=== PATIENT | male | born 1970 | race Caucasian/White ===

== ENCOUNTER 2021-08-06 21:43 | Inpatient (IN) | payer BC, OTHER ==
--- OUTSIDE RECORDS SUMMARY | 2021-08-06 21:47 | XMS REPORT | Continuity of Care Document ---
:[address] [facility] t Address [address] [place] [address] Care Team Providers Name Role Phone Unavailable Unavailable Unavailable Problems Condition Condition Condition Status Onset Resolution Last Treating Co mments Source Name Details Category Date Date Treatment Clinician Date WOUND EVAL Diagnosis Active 2016-02-01 Memoria 01-30 10:19:00 l WOUND 00:00: Jb EVAL 00 Active 01/31/2016 [facility] History of Past Illness Condition Condition Condition Status Onset Resolution Last Treating Co mments Source Name Details Category Date Date Treatment Clinician Date Discharge Problem 2016-02-03 2016-02-03 Memoria Diagnosis: 01-30 03:36:42 03:36:42 l Acute UTI 05:00: [facility] Discharge 00 Diagnosis: Acute UTI 01/31/2016 02/03/2016 [facility] Discharge Problem 2016-02-03 2016-02-03 Memoria Diagnosis: 01-30 03:36:42 03:36:42 l Pressure 05:00: [facility] ulcer of Discharge 00 buttock Diagnosis: Pressure ulcer of buttock 01/31/2016 02/03/2016 [facility] Allergies, Adverse Reactions, Alerts Allergy Allergy Status Severity Reaction(s) Onset Inactive Treating Comm ents Source Name Type Date Date Clinician Savannah Nuñez Active Haydeori a tin tin l Jb Social History Social Habit Start Date Stop Date Quantity Comments Source Social History 2016-01-31 2016-01-31 [facility] Santi kurtz 19:49:47 19:49:47 Medications Ordered Filled Start Stop Current Ordering Indication Dosage Frequency Signature Comments Components Source Medication Medication Date Date Medication? Clinician (SIG) Name Name amoxicillin Yes 500 mg = 1 Memoria 500 mg oral 8-19 cap, PO, l capsule 18:51: BID, X 10 Melly nn 00 day, # 20 cap, 0 Refill(s), Pharmacy: [id number] tramadol Yes 50 mg = 1 Raj taina hydrochlori 01-30 tab, PO, l de 50 MG 22:12: BID, X 7 Melly nn Oral Tablet 00 day, # 14 tab, 0 Refill(s) cefpodoxime Yes 200 mg = 1 Memoria 200 MG Oral 01-30 tab, PO, l Tablet 22:12: Q12H, X 7 Aguilar n [Vantin] 00 day, # 14 tab, 0 Refill(s) Acetaminoph No 1 tab, Raj taina en 325 MG / 01-30 Route: PO, l Hydrocodone 20:40: Drug Form: [facility] Bitartrate 00 TAB, 5 MG Oral Dosing Tablet Weight 111.364, kg, ONCE, STAT, Start date: 01/31/16 15:40:00 CDT, Stop date: 01/31/16 15:40:00 CDT Vital Signs Vital Name Observation Time Observation Value Comments Source Temperature Oral (F) 2016-01-31 23:45:00 98.5 F [facility] Respitory Rate 2016-01-31 23:45:00 Memori al Jb Systolic (mm Hg) 2016-01-31 23:45:00 Raj rial Jb Diastolic (mm Hg) 2016-01-31 23:45:00 Mem orial Jb Respitory Rate 2016-01-31 21:43:00 Memori al [facility] Systolic (mm Hg) 2016-01-31 21:43:00 Raj rial Jb Diastolic (mm Hg) 2016-01-31 21:43:00 Mem orial [facility] Temperature Oral (F) 2016-01-31 21:43:00 98.6 F [facility] BMI Calculated 2016-01-31 19:28:00 Memori al [facility] Height 2016-01-31 19:28:00 167.64 cm [facility] Weight 2016-01-31 19:28:00 [facility] Respitory Rate 2016-01-31 19:28:00 Memori al Jb Heart Rate 2016-01-31 19:28:00 [facility] Temperature Oral (F) 2016-01-31 19:28:00 98.8 F [facility] Systolic (mm Hg) 2016-01-31 19:28:00 Raj rial Jb Diastolic (mm Hg) 2016-01-31 19:28:00 Mem orial [facility] Procedures This patient has no known procedures. Encounters Start End Encounter Admission Attending Care Care Encounter Source Date/Time Date/Time Type Type Clinicians Facility Department ID 2016-01-31 2016-02-01 Emergency Hillary [facility] [id number] [facility] Results Test Description Test Time Test Comments Results Result Comments Source CHEM PANEL 2016-01-31 21:20:00 Test Item Value Reference Range Interpretation Comme nts Creatinine Lvl (test code = Creatinine Lvl) 0.81 0.50-1.[address] [facility]2016-08-17 21:20:00 Test Item Value Reference Range Interpretation Comments BUN (test code = BUN) 15 7-[address] [facility]2016-08-17 21:20:00 Test Item Value Reference Range Interpretation Comments Glucose Lvl (test code = Glucose Lvl) 126 70-[address] [facility]2016-08-17 21:20:00 Test Item Value Reference Range Interpretation Comments AGAP (test code = AGAP) 7.2 10.0-20.[address] [facility]2016-08-17 21:20:00 Test Item Value Reference Range Interpretation Comments eGFR (test code = eGFR) [address] [facility]2016-08-17 21:20:00 Test Item Value Reference Range Interpretation Comments Chloride Lvl (test code = Chloride Lvl) 103 95-[address] [facility]2016-08-17 21:20:00 Test Item Value Reference Range Interpretation Comments CO2 (test code = CO2) 34 24-[address] [facility]2016-08-17 21:20:00 Test Item Value Reference Range Interpretation Comments Calcium Lvl (test code = Calcium Lvl) 8.4 8.5-10.[address] [facility]2016-08-17 21:20:00 Test Item Value Reference Range Interpretation Comments Potassium Lvl (test code = Potassium 4.2 3.5-5.1 Lvl) [facility]2016-08-17 21:20:00 Test Item Value Reference Range Interpretation Comments Sodium Lvl (test code = Sodium Lvl) 140 135-145 [facility] AND [id number] 21:05:00 Test Item Value Reference Range Interpretation Comments UA Protein (test code Negative (01/31/16 4:05 = UA Protein) PM) [facility] [id number] 21:05:00 Test Item Value Reference Range Interpretation Comments UA Glucose (test code Negative (01/31/16 4:05 = UA Glucose) PM) [facility] AND [id number] 21:05:00 Test Item Value Reference Range Interpretation Comments UA Ketones (test code Negative *NA*(01/31/16 = UA Ketones) 4:05 PM) [facility] AND [id number] 21:05:00 Test Item Value Reference Range Interpretation Comments UA Urobilinogen (test code = UA 4.0 0.1-1.0 Urobilinogen) [facility] AND [id number] 21:05:00 Test Item Value Reference Range Interpretation Comments UA Nitrite (test code Positive *ABN*(01/31/16 = UA Nitrite) 4:05 PM) [facility] AND [id number] 21:05:00 Test Item Value Reference Range Interpretation Comments UA Leuk Est (test code Large *ABN*(01/31/16 = UA Leuk Est) 4:05 PM) [facility] AND [id number] 21:05:00 Test Item Value Reference Range Interpretation Comments UA pH (test code = UA pH) 7.5 1 5.0-8.0 [facility] AND [id number] 21:05:00 Test Item Value Reference Range Interpretation Comments UA Spec Grav (test code = UA Spec 1.015 1 Grav) [facility] AND [id number] 21:05:00 Test Item Value Reference Range Interpretation Comments UA Bili (test code = Negative *NA*(01/31/16 UA Bili) 4:05 PM) [facility] AND [id number] 21:05:00 Test Item Value Reference Range Interpretation Comments UA Blood (test code = Small *ABN*(01/31/16 UA Blood) 4:05 PM) [facility] AND [id number] 21:05:00 Test Item Value Reference Range Interpretation Comments UA Turbidity (test code Cloudy *ABN*(01/31/16 = UA Turbidity) 4:05 PM) [facility] AND [id number] 21:05:00 Test Item Value Reference Range Interpretation Comments UA Color (test code = Yellow *NA*(01/31/16 UA Color) 4:05 PM) [facility] AND [id number] 21:05:00 Test Item Value Reference Range Interpretation Comments UA Mucus (test code = None Seen (01/31/16 UA Mucus) 4:05 PM) [facility] AND [id number] 21:05:00 Test Item Value Reference Range Interpretation Comments UA Bacteria (test code = UA Many /HPF Bacteria) [facility] AND [id number] 21:05:00 Test Item Value Reference Range Interpretation Comments UA Sq Epi (test code = UA Sq Moderate /LPF Epi) [facility] AND [id number] 21:05:00 Test Item Value Reference Range Interpretation Comments UA WBC (test code = UA WBC) >100 /HPF [facility] AND [id number] 21:05:00 Test Item Value Reference Range Interpretation Comments UA RBC (test code = 0-2 /HPF See_Comment [Automa ian message] The UA RBC) system which ge nerated this result tra nsmitted reference range : <=2. The reference range was not used to interpr et this result as jessica l/abnormal. [id number] 21:00:00 Test Item Value Reference Range Interpretation Comments Hgb (test code = Hgb) 12.5 14.0-18.0 [id number] 21:00:00 Test Item Value Reference Range Interpretation Comments WBC (test code = WBC) 7.9 3.7-10.4 [id number] 21:00:00 Test Item Value Reference Range Interpretation Comments MPV (test code = MPV) 8.3 7.4-10.4 [id number] 21:00:00 Test Item Value Reference Range Interpretation Comments Platelet (test code = Platelet) 299 133-450 [id number] 21:00:00 Test Item Value Reference Range Interpretation Comments RDW (test code = RDW) 16.3 11.5-14.5 [id number] 21:00:00 Test Item Value Reference Range Interpretation Comments RBC (test code = RBC) 4.64 4.70-6.10 [id number] 21:00:00 Test Item Value Reference Range Interpretation Comments MCH (test code = MCH) 26.9 pg 27.0-31.0 [id number] 21:00:00 Test Item Value Reference Range Interpretation Comments MCHC (test code = MCHC) 32.8 32.0-36.0 [id number] 21:00:00 Test Item Value Reference Range Interpretation Comments Hct (test code = Hct) 37.9 42.0-54.0 [id number] 21:00:00 Test Item Value Reference Range Interpretation Comments MCV (test code = MCV) 81.8 80.0-94.0 [id number] 21:00:00 Test Item Value Reference Range Interpretation Comments Basophils (test code = 0.6 See_Comment [Aut omated message] The Basophils) system which ge nerated this result tra nsmitted reference range : <=1.0. The reference r kyrie was not used to int erpret this result as normal/abnormal . [id number] 21:00:00 Test Item Value Reference Range Interpretation Comments Segs-Bands # (test code = Segs-Bands #) 5.9 1.5-8.1 [facility] [id number] 21:00:00 Test Item Value Reference Range Interpretation Comments Monocytes (test code = Monocytes) 8.1 2.0-12.0 [id number] 21:00:00 Test Item Value Reference Range Interpretation Comments Eosinophils (test code = 1.9 See_Comment [A utomated message] The Eosinophils) system which ge nerated this result tra nsmitted reference range : <=4.0. The reference r kyrie was not used to int erpret this result as normal/abnormal . [id number] 21:00:00 Test Item Value Reference Range Interpretation Comments Lymphocytes # (test code = Lymphocytes 1.1 1.0-5.5 #) [id number] 21:00:00 Test Item Value Reference Range Interpretation Comments Segs (test code = Segs) 75.1 45.0-75.0 [facility] [id number] 21:00:00 Test Item Value Reference Range Interpretation Comments Lymphocytes (test code = Lymphocytes) 14.3 20.0-40.0 [facility] [id number] 21:00:00 Test Item Value Reference Range Interpretation Comments Monocytes # (test code 0.6 See_Comment [Aut omated message] The = Monocytes #) system which generated this result tra nsmitted reference range : <=0.8. The reference r kyrie was not used to int erpret this result as normal/abnormal . [facility] [id number] 21:00:00 Test Item Value Reference Range Interpretation Comments Eosinophils # (test code 0.1 See_Comment [A utomated message] The = Eosinophils #) system whic h generated this result tra nsmitted reference range : <=0.5. The reference r kyrie was not used to int erpret this result as normal/abnormal . [facility]
[2021-08-06 22:27] LABS: Absolute Lymphocytes (CBC) 1.1 K/uL (0.7-4.9); Hematocrit 34.6 % (39.6-49.0); MPV 7.6 fL (7.6-11.3); RBC Red Blood Cell Count 5.24 M/uL (4.33-5.43)
[2021-08-06 22:38] LABS: Protime INR 1.13
[2021-08-06 22:39] LABS: Urine Blood 3+ (Negative); Urine Glucose Negative (Negative); Urine Protein 3+ (Negative); Urine Specific Gravity 1.025 (1.005-1.030); Urine pH 6.5 (5.0-7.0)
[2021-08-06] MEDS ORDERED: CEFTRIAXONE 1000 MG/VIAL ONE (22:46)
[2021-08-06 22:51] LABS: ALT/SGPT 19 U/L (12-78); AST/SGOT 14 U/L (15-37); Albumin 2.2 g/dL (3.4-5.0); Alkaline Phosphatase 111 U/L (45-117); BUN Blood Urea Nitrogen 26 mg/dL (7-18); Bicarbonate 25 mmol/L (21-32); Bilirubin Direct 0.1 mg/dL (0-0.2); Bilirubin Total 0.3 mg/dL (0.2-1.0); Glucose Level 110 mg/dL (74-106); Lipase 62 U/L (73-393); Potassium 4.1 mmol/L (3.5-5.1); Protein, Total 8.1 g/dL (6.4-8.2); Sodium Level 134 mmol/L (136-145)
[2021-08-06] MEDS ORDERED: NA CHLORIDE 0.9% 1,000 ML ONE (23:08)
--- NOTE | 2021-08-06 23:09 | ER ---
Nurse's Notes [facility] Name: Elizabeth Spivey Age: 51 yrs Sex: Male : 1970 Arrival Date: 08/06/2021 Time: 21:45 Bed 19 Private MD: Diagnosis: Acute cystitis;Severe sepsis without septic shock;Pneumonia, unspecified organism Presentation: 08/06 22:00 Chief complaint: EMS states: they were toned out for report of pt with fever and UTI. bb Coronavirus screen: fever, Client presents with at least one sign or symptom that may indicate coronavirus-19. Standard/surgical mask placed on the client. Ebola Screen: No symptoms or risks identified at this time. Initial Sepsis Screen: Does the patient meet any 2 criteria? RR > 20 per min. Temp <36.0*C (96.8*F)) or > 38.3*C (100.9*F). HR > 90 bpm. Does the patient have a suspected source of infection? Yes: Dysuria/Frequency/Urgency/UTI. Risk Assessment: Do you want to hurt yourself or someone else? Patient reports no desire to harm self or others. Onset of symptoms was August 04, 2021. 22:00 Method Of Arrival: EMS: [facility] bb 22:00 Acuity: MARTÍN 3 bb Historical: - Allergies: 22:02 Macrobid; bb - Home Meds: 22:02 Myrbetriq 50 mg oral Tb24 1 tab once daily [Active]; bb - PMHx: 22:02 Spina Bifida; Lymphedema; bb - Immunization history:: Adult Immunizations up to date, Client reports receiving the 2nd dose of the Covid vaccine, Pfizer. - Social history:: Smoking status: Patient denies any tobacco usage or history of. Vital Signs: 22:00 BP 145 / 90; Pulse 118; Resp 22 S; Temp 100.8(O); Pulse Ox 93% on R/A; Weight 122.47 kg bb (R); Height 5 ft. 5 in. (165.10 cm) (R); Pain 0/10; 22:00 Body Mass Index 44.93 (122.47 kg, 165.10 cm) bb ED Course: 21:45 Patient arrived in ED. kc5 21:45 Dale Simons MD is Attending Physician. kdr 21:45 Richard Ruano PA is PHCP. jr8 21:48 Maintain EMS IV. Dressing intact. Site clean \\T\\ dry. sf1 21:52 Inserted saline lock: 20 gauge in right antecubital area, using aseptic technique. sf1 Blood collected. 22:01 Chelly Moss RN is Primary Nurse. sf1 22:02 Triage completed. bb 22:02 Arm band placed on Patient placed in an exam room, on a stretcher, on pulse oximetry. bb 22:32 Blood Culture Adult (2) Sent. sf1 22:32 Basic Metabolic Panel Sent. sf1 22:47 Chest Single View In Process Unspecified. EDMS 22:52 Procalcitonin Sent. sf1 22:52 SARS-COV-2 RT PCR (Document "Date of Onset" if Symptomatic) Sent. sf1 22:52 Urine Culture Sent. sf1 22:52 Urine Microscopic Only Sent. sf1 22:59 Urine Culture Sent. sf1 22:59 Urine Microscopic Only Sent. sf1 23:00 SARS-COV-2 RT PCR (Document "Date of Onset" if Symptomatic) Sent. sf1 23:08 Shamar Morales is Hospitalizing Provider. jr8 08/07 07:05 Primary Nurse role handed off by Chelly Moss RN 07:05 Rashard Lugo, ANDRE is Primary Nurse. bp Administered Medications: 08/06 22:00 Drug: NS 0.9% 1000 ml Route: IV; Rate: 1000 ml; Site: right antecubital; sf1 22:46 Drug: Rocephin (cefTRIAXone) 1 grams Route: IV; Rate: calculated rate; Site: left sf1 antecubital; 23:24 Drug: LevaQUIN (levofloxacin) 500 mg Volume: 100 ml; Route: IVPB; Infused Over: 60 sf1 mins; Site: right antecubital; Outcome: 23:09 Decision to Hospitalize by Provider. jr8 08/07 11:23 Patient left the ED. bp Signatures: Dispatcher [employer] EDMS Dale Simons MD MD kdr Ballard, Brenda, RN RN bb Richard Ruano PA PA jr8 Rashard Lugo RN RN Anika Shell [facility] Fillers, Chelly, RN RN sf1 Corrections: (The following items were deleted from the chart) 08/06 22: 22:01 Maintain EMS IV. [facility] 22:02 PMHx: Lympedema; bb bb 23:12 22:51 CBC Smear Scan drawn and sent. 1 EDMS
--- NOTE | 2021-08-06 23:09 | EDPHYS ---
Physician Documentation [facility] Name: Elizabeth Spivey Age: 51 yrs Sex: Male : 1970 Arrival Date: 08/06/2021 Time: 21:45 Bed 19 Private MD: ED Physician Dale Simons HPI: 08/06 22:57 This 51 yrs old Male presents to ER via EMS with complaints of Fever. jr8 22:57 The patient reports fever, with an emergency department temperature of 100.8 degrees jr8 Fahrenheit. Onset: The symptoms/episode began/occurred acutely, today. Modifying factors: there are no obvious modifying factors. Associated signs and symptoms: Pertinent positives: chills. Severity of symptoms: At their worst the symptoms were moderate in the emergency department the symptoms are unchanged. The patient has not experienced similar symptoms in the past. The patient has been recently seen by a physician:. Recently diagnosed with UTI at [facility] and put on Abx. Started to run fever and feel worse tonight. EMS state that he was initially hypoxic on scene in the low 90s as well . Historical: - Allergies: 22:02 Macrobid; bb - Home Meds: 22:02 Myrbetriq 50 mg oral Tb24 1 tab once daily [Active]; bb - PMHx: 22:02 Spina Bifida; Lymphedema; bb - Immunization history:: Adult Immunizations up to date, Client reports receiving the 2nd dose of the Covid vaccine, Pfizer. - Social history:: Smoking status: Patient denies any tobacco usage or history of. ROS: 23:07 Eyes: Negative for injury, pain, redness, and discharge, ENT: Negative for injury, jr8 pain, and discharge, Neck: Negative for injury, pain, and swelling, Cardiovascular: Negative for chest pain, palpitations, and edema, Respiratory: Negative for shortness of breath, cough, wheezing, and pleuritic chest pain, Abdomen/GI: Negative for abdominal pain, nausea, vomiting, diarrhea, and constipation, Back: Negative for injury and pain, MS/Extremity: Negative for injury and deformity, Skin: Negative for injury, rash, and discoloration, Neuro: Negative for headache, weakness, numbness, tingling, and seizure. 23:07 Constitutional: Positive for fever. 23:07 : Positive for small amounts. Exam: 23:07 Constitutional: This is a well developed, well nourished patient who is awake, alert, jr8 and in no acute distress. ENT: Nares patent. No nasal discharge, no septal abnormalities noted. Tympanic membranes are normal and external auditory canals are clear. Oropharynx with no redness, swelling, or masses, exudates, or evidence of obstruction, uvula midline. Mucous membranes moist. Neck: Trachea midline, no thyromegaly or masses palpated, and no cervical lymphadenopathy. Supple, full range of motion without nuchal rigidity, or vertebral point tenderness. No Meningismus. 23:07 Back: No spinal tenderness. No costovertebral tenderness. Full range of motion. Skin: Warm, dry with normal turgor. Normal color with no rashes, no lesions, and no evidence of cellulitis. MS/ Extremity: Pulses equal, no cyanosis. Neurovascular intact. Full, normal range of motion. Neuro: Awake and alert, GCS 15, oriented to person, place, time, and situation. Cranial nerves II-XII grossly intact. Motor strength 5/5 in all extremities. Sensory grossly intact. 23:07 Cardiovascular: Rate: tachycardic, Rhythm: regular, Pulses: Pulses are 2+ in right radial artery and left radial artery. Heart sounds: normal, normal S1and S2, no S3 or S4, no murmur, no rub, no gallop, Edema: is not appreciated. 23:07 Respiratory: the patient does not display signs of respiratory distress, Respirations: tachypnea, that is mild, Breath sounds: are clear throughout. 23:07 Abdomen/GI: Inspection: obese Bowel sounds: active, all quadrants, Palpation: soft, in all quadrants, mild abdominal tenderness, in the suprapubic area, mass, is not appreciated, rebound tenderness, is not appreciated, voluntary guarding, is not appreciated, involuntary guarding, is not appreciated, no appreciated organomegaly, Indicators: McBurney's point is not tender, Dubois's sign is negative, Rovsing's sign is negative. Vital Signs: 22:00 BP 145 / 90; Pulse 118; Resp 22 S; Temp 100.8(O); Pulse Ox 93% on R/A; Weight 122.47 kg bb (R); Height 5 ft. 5 in. (165.10 cm) (R); Pain 0/10; 22:00 Body Mass Index 44.93 (122.47 kg, 165.10 cm) bb MDM: 21:45 Patient medically screened. [email or web address]] 23:09 Data reviewed: vital signs, nurses notes, lab test result(s), EKG, radiologic studies, jr8 plain films. Data interpreted: Pulse oximetry: on room air is 93 %. Interpretation: normal. Counseling: I had a detailed discussion with the patient and/or guardian regarding: the historical points, exam findings, and any diagnostic results supporting the discharge/admit diagnosis, lab results, radiology results, the need for further work-up and treatment in the hospital. 08/06 21:51 Order name: Basic Metabolic Panel; Complete Time: 22:52 [facility] [[email or web address]] 08/06 21:51 Order name: Blood Culture Adult (2) [facility] [[email or web address]] 08/06 21:51 Order name: Urine Culture [facility] [[email or web address]] 08/06 21:51 Order name: Urine Microscopic Only; Complete Time: 23:37 [facility] [[email or web address]] 08/06 21:51 Order name: SARS-COV-2 RT PCR (Document "Date of Onset" if Symptomatic); Complete Time: jr8 00:14 08/06 22:22 Order name: Liver (Hepatic) Function; Complete Time: 22:52 EDMS 08/06 22:22 Order name: Troponin High Sensitivity; Complete Time: 22:52 EDMS 08/06 22:22 Order name: Lipase; Complete Time: 22:52 EDMS 08/06 22:22 Order name: Lactate; Complete Time: 22:52 EDMS 08/06 22:22 Order name: Procalcitonin; Complete Time: 23:55 EDMS 08/06 22:22 Order name: CBC with Automated Diff; Complete Time: 23:16 EDMS 08/06 22:22 Order name: PTT, Activated Partial Thromb; Complete Time: 22:52 EDMS 08/06 22:29 Order name: Protime (+INR); Complete Time: 22:52 EDMS 08/06 22:40 Order name: Urine Dipstick-Ancillary; Complete Time: 22:52 EDMS 08/06 23:12 Order name: Manual Differential; Complete Time: 23:16 EDMS 08/07 03:15 Order name: CBC with Automated Diff EDNC 08/07 03:38 Order name: Comprehensive Metabolic Panel EDNC 08/07 03:38 Order name: Lipid Profile EDNC 08/07 03:38 Order name: T4 Free EDNC 08/07 03:38 Order name: Magnesium EDNC 08/07 03:38 Order name: Thyroid Stimulating Hormone EDNC 08/06 21:51 Order name: Accucheck; Complete Time: 23:53 8 08/06 21:51 Order name: Cardiac monitoring; Complete Time: 22:32 8 08/06 21:51 Order name: EKG - Nurse/Tech; Complete Time: 23:53 8 08/06 21:51 Order name: IV Saline Lock - Large Bore; Complete Time: 22:32 8 08/06 21:51 Order name: Labs collected and sent; Complete Time: 22:32 [facility] [[email or web address]] 08/06 21:51 Order name: O2 Per Protocol; Complete Time: 22:32 8 08/06 21:51 Order name: O2 Sat Monitoring; Complete Time: 22:32 8 08/06 21:51 Order name: Urine Dipstick-Ancillary (obtain specimen); Complete Time: 22:52 [facility] [[email or web address]] 08/06 22:02 Order name: Chest Single View EDNC Administered Medications: 22:00 Drug: NS 0.9% 1000 ml Route: IV; Rate: 1000 ml; Site: right antecubital; sf1 22:46 Drug: Rocephin (cefTRIAXone) 1 grams Route: IV; Rate: calculated rate; Site: left sf1 antecubital; 23:24 Drug: LevaQUIN (levofloxacin) 500 mg Volume: 100 ml; Route: IVPB; Infused Over: 60 sf1 mins; Site: right antecubital; Disposition: 08/07 04:56 Co-signature as Attending Physician, Dale Simons MD I agree with the assessment and kdr plan of care. Disposition Summary: 08/06/21 23:09 Hospitalization Ordered Hospitalization Status: Inpatient Admission jr8 Provider: Shamar Morales Condition: Stable jrKeith Problem: new jr8 Symptoms: have improved jr8 Bed/Room Type: Standard [facility] [email or web address]] Location: Telemetry/MedSurg (Inpatient)(08/07/21 09:14) bd Room Assignment: 419(08/07/21 09:14) bd Diagnosis - Acute cystitis jr8 - Severe sepsis without septic shock jr8 - Pneumonia, unspecified organism jr8 Forms: - Medication Reconciliation Form jr8 - SBAR form jr8 Signatures: Dispatcher [employer] EDMS Angelica Charles bd Dale Simons MD MD [facility] Migdalia Bravo RN RN bb Richard Ruano PA PA jr8 Kaylee Carrillo RN RN cg Chelly Moss RN RN sf1 Corrections: (The following items were deleted from the chart) 08/06 22:04 22:02 PMHx: Lympedema; bb bb 22: 22:18 CBC+H.LAB.BRZ ordered. EDMS EDMS : 22:18 HEPATIC FUNCTION+C.LAB.BRZ ordered. EDMS EDMS : 22:18 LACTATE+C.LAB.BRZ ordered. EDMS EDMS : 22:18 LIPASE+C.LAB.BRZ ordered. EDMS EDMS : 22:18 PCT+C.LAB.BRZ ordered. EDMS EDMS : 22:18 PROTIME (+INR)+COAG.LAB.BRZ ordered. EDMS EDMS : 22:18 PTT, ACTIVATED+COAG.LAB.BRZ ordered. EDMS EDMS 22: 22:18 Troponin High Sensitivity+C.LAB.BRZ ordered. EDMS EDMS 22:44 22:18 Chest Single View+RAD.RAD.BRZ ordered. EDMS EDMS 23:12 22:34 CBC Smear Scan ordered. EDMS EDMS 08/07 00:29 08/06 23:09 Telemetry/MedSurg (Inpatient) [facility] [[email or web address]] cg 08/07 00:29 08/06 23:09 jr cg 08/07 09:14 00:29 [facility] ER HOLD cg bd 09:14 00:29 ERHOLD- cg bd
[2021-08-06 23:15] LABS: Anisocytosis 2+; Blood Morphology Comment NOTED (NOT SEEN); Platelet Estimate INCR
[2021-08-06] MEDS ORDERED: Levofloxacin500mg IV 500 MG/100 ML BAG IV ONE (23:23)
[2021-08-06 23:31] LABS: Urine Bacteria <20 /HPF (NONE SEEN)
--- NOTE | 2021-08-07 00:12 | P.HP ---
Certification for Inpatient Patient admitted to: Inpatient With expected LOS: >2 Midnights Patient will require the following post-hospital care: None Practitioner: I am a practitioner with admitting privileges, knowledge of patient current condition, hospital course, and medical plan of care. Services: Services provided to patient in accordance with Admission requirements found in Title 42 Section 412.3 of the Code of Federal Regulations Patient History Date of Service: 08/07/21 Primary Care Provider: Unknown Reason for admission: Urosepsis History of Present Illness: Patient is a 51-year-old male with spina bifida with indwelling suprapubic urinary catheter who presents to the ED with complaints of fever. Patient states that he went to [place] ER 2 days ago and was prescribed amoxicillin for UTI and discharged. Today in the ED patient's WBC was 10.7 but elevated bands. Sodium 134, calcium 8, pro-Sachin 0.18. urine 3+ blood, positive for nitrites, 3+ leukoesterase, 5-10 red blood cells and too numerous to count white blood cells. Covid negative, lactic acid 0.7. Patient is A&Ox3 and vital signs remain stable. blood cultures were drawn and patient was started on Levaquin and Rocephin. Patient was given 2 L of fluid in the ED. patient will be admitted for further evaluation and treatment of urosepsis with IV antibiotics. Allergies nitrofurantoin [From Macrodantin] Allergy (Verified 02/23/16 15:56) Anaphylaxis Home medications list reviewed: Yes Home Medications: NK [No Home Meds] 02/23/16 - Past Medical/Surgical History Diabetic: No -: Spina Bifida -: Lymphedema -: Hx osteomyelitis -: Toe amputation left foot -: Bladder sphincter revision Psychosocial/ Personal History: Patient lives alone. - Family History Father -: Cancer - Social History Smoking Status: Never smoker Alcohol use: Yes CD- Drugs: No Place of Residence: Home Review of Systems 10-point ROS is otherwise unremarkable General: Fever, As per HPI Physical Examination - Physical Exam General: Alert, In no apparent distress, Oriented x3, Obese HEENT: Atraumatic, PERRLA, Mucous membr. moist/pink, EOMI, Sclerae nonicteric Neck: Supple, 2+ carotid pulse no bruit, No LAD, Without JVD or thyroid abnormality Respiratory: Clear to auscultation bilaterally, Normal air movement Cardiovascular: Regular rate/rhythm, Normal S1 S2 Gastrointestinal: Normal bowel sounds, No tenderness Musculoskeletal: No tenderness Integumentary: No rashes Neurological: Normal speech, Normal strength at 5/5 x4 extr, Normal tone, Normal affect Urinary: Suprapubic catheter - Studies Laboratory Data (last 24 hrs) 08/06/21 21:58: PT 13.0 H, INR 1.13, APTT 33.9 08/06/21 21:58: WBC 10.70, Hgb 10.8 L, Hct 34.6 L, Plt Count 555 H 08/06/21 21:58: Sodium 134 L, Potassium 4.1, BUN 26 H, Creatinine 0.88, Glucose 110 H, Total Bilirubin 0.3, AST 14 L, ALT 19, Alkaline Phosphatase 111, Lipase 62 L 08/06/21 21:51: PT Cancelled, INR Cancelled, APTT Cancelled 08/06/21 21:51: Total Bilirubin Cancelled, AST Cancelled, ALT Cancelled, Alkaline Phosphatase Cancelled, Lipase Cancelled 08/06/21 21:51: WBC Cancelled, Hgb Cancelled, Hct Cancelled, Plt Count Cancelled Assessment and Plan - Problems (Diagnosis) (1) Sepsis due to urinary tract infection Current Visit: Yes Status: Acute (2) Lymphedema Current Visit: Yes Status: Chronic (3) Obesity (BMI 35.0-39.9 without comorbidity) Current Visit: Yes Status: Chronic (4) Paraplegia Current Visit: Yes Status: Chronic (5) Spina bifida Current Visit: Yes Status: Chronic Qualifiers: Spinal region: unspecified Presence of hydrocephalus: unspecified hydrocephalus presence Qualified Code(s): Q05.9 - Spina bifida, unspecified - Plan -patient started on levaquin and rocephin -continue IVF and tele -urine and blood cultures collected -trend WBC -patient takes Myrbetriq 500 mg QD as a home med, however is not available here DVT ppx: Lovenox Code: Full Discharge Plan: Home Plan to discharge in: Greater than 2 days - Advance Directives Does patient have a Living Will: No Does patient have a Durable POA for Healthcare: No - Code Status/Comfort Care Code Status Assessed: Yes (Full) Critical Care: No Time Spent Managing Pts Care (In Minutes): 70
[2021-08-07] MEDS ORDERED: ONDANSETRON 4 MG/2 ML VIAL IV PRN (01:54)
[2021-08-07] MEDS: NA CHLORIDE 0.9% 1,000 ML IV SCH ×3 (01:54→21:44)
[2021-08-07] MEDS ORDERED: Levofloxacin 750mg IV 750 MG/150 ML BAG IV SCH (02:00)
[2021-08-07] MEDS ORDERED: NA CHLORIDE 0.9% 1,000 ML ONE (02:34)
[2021-08-07 03:13] LABS: Absolute Lymphocytes (CBC) 0.8 K/uL (0.7-4.9); Hematocrit 33.8 % (39.6-49.0); Lymphocytes % 9.1 % (15.3-44.8); MPV 7.8 fL (7.6-11.3); RBC Red Blood Cell Count 4.98 M/uL (4.33-5.43)
[2021-08-07 03:38] LABS: Bilirubin Total 0.3 mg/dL (0.2-1.0); Potassium 3.9 mmol/L (3.5-5.1); Protein, Total 7.7 g/dL (6.4-8.2); Thyroid Stimulating Hormone 2.48 uIU/mL (0.360-3.740)
--- NOTE | 2021-08-07 04:23 | P.INFCA ---
Sepsis Focused Assessment - Focused Assessment Complete? Sepsis Focused Assessment Completed?: Yes - Sepsis Screen Result Severe Sepsis: Positive Septic Shock: Negative - Evaluation Current stage of sepsis: Severe sepsis - Vital Signs Reviewed: Yes - Examination Date exam was performed: 08/07/21 Time exam was performed: 04:00 Heart: Regular rate/rhythm Lungs: Clear bilaterally Peripheral pulses: 3+ Normal Peripheral pulse location: Radial Skin examination: Normal turgor
[2021-08-07 07:23] VITALS: BMI 44.9
--- NOTE | 2021-08-07 08:26 | RAD REPORT ---
EXAM DESCRIPTION: RAD - Chest Single View - 08/06/2021 10:47 pm CLINICAL HISTORY: fever Chest pain. COMPARISON: CHEST SINGLE VIEW dated 05/06/2008; CHEST SINGLE VIEW dated 09/25/2005 FINDINGS: Portable technique limits examination quality. Asymmetric bilateral interstitial lung opacities are present, greater on the right. This likely repre sents a viral infection. The heart is normal in size. No displaced fractures.
[2021-08-07] MEDS: ENOXAPARIN 40 MG/0.4 ML SQ SCH (09:00)
[2021-08-07] MEDS: CEFTRIAXONE 1,000 MG in NA CHLORIDE 0.9% 50 ML IVPB SCH (09:00)
[2021-08-07] MEDS ORDERED: ENOXAPARIN 40 MG/0.4 ML SQ ONE (09:37)
[2021-08-07] MEDS ORDERED: CEFTRIAXONE 1000 MG/VIAL ONE (09:37)
[2021-08-07] MEDS ORDERED: NA CHLORIDE 0.9% 100 ML IV ONE (09:37)
--- NOTE | 2021-08-07 16:10 | EKG ---
Test Date: 2021-08-06 Test Time: 23:49:51 [place]: MEASUREMENT RESULTS: Intervals: Rate: 102 NC: 130 QRSD: 72 QT: 348 QTc: 453 [place]: P: 42 NC: 130 QRS: 91 T: 34 INTERPRETIVE STATEMENTS: Sinus tachycardia Rightward axis Cannot rule out Anterior infarct, age undetermined Abnormal ECG Compared to ECG 09/25/2005 19:09:00 Right-axis deviation now present Myocardial infarct finding now present Sinus rhythm no longer present Electronically Signed On 08-07-21 16:10:38 ADJUSTMENT SUPERVISOR by Radhames Reina
--- NOTE | 2021-08-07 16:26 | P.PN ---
Subjective Date of Service: 08/07/21 Primary Care Provider: Unknown Chief Complaint: Urosepsis Complaining of dysuria, general malaise and fever. He had a fever of 100.8 last night. He is tolerating diet. Physical Examination - Vital Signs Temperature: 98.2 F Blood Pressure: 114/76 Pulse: 97 Respirations: 20 Pulse Ox (%): 97 - Studies Laboratory Data (last 24 hrs) 08/06/21 21:58: PT 13.0 H, INR 1.13, APTT 33.9 08/06/21 21:58: WBC 10.70, Hgb 10.8 L, Hct 34.6 L, Plt Count 555 H 08/06/21 21:58: Sodium 134 L, Potassium 4.1, BUN 26 H, Creatinine 0.88, Glucose 110 H, Total Bilirubin 0.3, AST 14 L, ALT 19, Alkaline Phosphatase 111, Lipase 62 L 08/06/21 21:51: PT Cancelled, INR Cancelled, APTT Cancelled 08/06/21 21:51: Total Bilirubin Cancelled, AST Cancelled, ALT Cancelled, Alkaline Phosphatase Cancelled, Lipase Cancelled 08/06/21 21:51: WBC Cancelled, Hgb Cancelled, Hct Cancelled, Plt Count Cancelled Assessment And Plan - Current Problems (Diagnosis) (1) Sepsis due to urinary tract infection Current Visit: Yes Status: Acute (2) Obesity (BMI 35.0-39.9 without comorbidity) Current Visit: Yes Status: Chronic (3) Paraplegia Current Visit: Yes Status: Chronic (4) Spina bifida Current Visit: Yes Status: Chronic Qualifiers: Spinal region: unspecified Presence of hydrocephalus: unspecified hydrocephalus presence Qualified Code(s): Q05.9 - Spina bifida, unspecified - Plan Physical Exam General: Alert, In no apparent distress, Oriented x3, Obese HEENT: Atraumatic, PERRLA, Mucous membr. moist/pink, EOMI, Sclerae nonicteric Neck: Supple, 2+ carotid pulse no bruit, No LAD, Without JVD or thyroid abnormality Respiratory: Clear to auscultation bilaterally, Normal air movement Cardiovascular: Regular rate/rhythm, Normal S1 S2 Gastrointestinal: Normal bowel sounds, No tenderness Musculoskeletal: No tenderness Integumentary: No rashes Neurological: Normal speech, Normal strength at 5/5 x4 extr, Normal tone, Normal affect Genitourinary: Suprapubic catheter Assessment and plan Continue current antibiotics. Urine culture and blood cultures are pending. Supportive measures-antipyretics, pain management as needed. It appears his suprapubic catheter is leaking. This may need to be fixed-preferably as an outpatient with urology. New to treat infection before any urology procedure. Monitor and optimize electrolytes.
[2021-08-07] MEDS: ACETAMINOPHEN 500 MG TAB PO PRN (17:50)
[2021-08-07] MEDS: Levofloxacin 750mg IV 750 MG/150 ML BAG IV SCH (20:59)
[2021-08-08 04:47] LABS: Absolute Lymphocytes (CBC) 1.6 K/uL (0.7-4.9); Hematocrit 31.5 % (39.6-49.0); MPV 8.4 fL (7.6-11.3); RBC Red Blood Cell Count 4.72 M/uL (4.33-5.43)
[2021-08-08 05:04] LABS: ALT/SGPT 15 U/L (12-78); AST/SGOT 10 U/L (15-37); Alkaline Phosphatase 77 U/L (45-117); BUN Blood Urea Nitrogen 25 mg/dL (7-18); Bicarbonate 25 mmol/L (21-32); Bilirubin Total 0.2 mg/dL (0.2-1.0); Glucose Level 116 mg/dL (74-106); Potassium 3.5 mmol/L (3.5-5.1); Protein, Total 6.9 g/dL (6.4-8.2); Sodium Level 140 mmol/L (136-145)
[2021-08-08 08:15] VITALS: O2SAT 94
[2021-08-08] MEDS: ENOXAPARIN 40 MG/0.4 ML SQ SCH (08:47)
[2021-08-08] MEDS: CEFTRIAXONE 1,000 MG in NA CHLORIDE 0.9% 50 ML IVPB SCH (08:47)
[2021-08-08] MEDS: NA CHLORIDE 0.9% 1,000 ML IV SCH ×2 (08:49→18:35)
--- NOTE | 2021-08-08 15:23 | P.PN ---
Subjective Date of Service: 08/08/21 Primary Care Provider: Unknown Chief Complaint: Urosepsis Nursing staff report patient has been having frequent diarrhea He is tolerating diet. No fever today. Physical Examination - Vital Signs Temperature: 97.2 F Blood Pressure: 100/70 Pulse: 86 Respirations: 18 Pulse Ox (%): 97 - Physical Exam General: Alert, In no apparent distress, Obese HEENT: Mucous membr. moist/pink Neck: JVD not distended Respiratory: Clear to auscultation bilaterally, Normal air movement Cardiovascular: No edema, Regular rate/rhythm, Normal S1 S2 Gastrointestinal: Soft and benign, Non-distended, No tenderness, Other (Suprapubic catheter) Musculoskeletal: No swelling Integumentary: No cyanosis Neurological: Normal strength at 5/5 x4 extr - Studies Microbiology Data (last 24 hrs): 08/06/21 22:15 Blood - Blood Blood Culture Gram Stain - Final Assessment And Plan - Current Problems (Diagnosis) (1) Sepsis due to urinary tract infection Current Visit: Yes Status: Acute (2) Obesity (BMI 35.0-39.9 without comorbidity) Current Visit: Yes Status: Chronic (3) Paraplegia Current Visit: Yes Status: Chronic (4) Spina bifida Current Visit: Yes Status: Chronic Qualifiers: Spinal region: unspecified Presence of hydrocephalus: unspecified hydrocephalus presence Qualified Code(s): Q05.9 - Spina bifida, unspecified - Plan Physical Exam General: Alert, In no apparent distress, Oriented x3, Obese HEENT: Atraumatic, PERRLA, Mucous membr. moist/pink, EOMI, Sclerae nonicteric Neck: Supple, 2+ carotid pulse no bruit, No LAD, Without JVD or thyroid abnormality Respiratory: Clear to auscultation bilaterally, Normal air movement Cardiovascular: Regular rate/rhythm, Normal S1 S2 Gastrointestinal: Normal bowel sounds, No tenderness Musculoskeletal: No tenderness Integumentary: No rashes Neurological: Normal speech, Normal strength at 5/5 x4 extr, Normal tone, Normal affect Genitourinary: Suprapubic catheter Assessment and plan Continue current antibiotics. Urine culture growing gram-negative rods. 1 out of 4 blood culture bottles growing gram-positive cocci. This is likely a skin contaminant Supportive measures-antipyretics, pain management as needed. It appears his suprapubic catheter is leaking. This may need to be fixed-preferably as an outpatient with urology. Monitor and optimize electrolytes. Check stool for C. difficile. IV fluid.
[2021-08-08] MEDS: ACETAMINOPHEN 500 MG TAB PO PRN (21:41)
[2021-08-08] MEDS: Levofloxacin 750mg IV 750 MG/150 ML BAG IV SCH (21:42)
[2021-08-09] MEDS: NA CHLORIDE 0.9% 1,000 ML IV SCH (05:57)
[2021-08-09] MEDS: ACETAMINOPHEN 500 MG TAB PO PRN (05:58)
[2021-08-09 06:24] LABS: Absolute Lymphocytes (CBC) 1.8 K/uL (0.7-4.9); Hematocrit 33.7 % (39.6-49.0); Lymphocytes % 23.2 % (15.3-44.8); MPV 7.6 fL (7.6-11.3); RBC Red Blood Cell Count 4.96 M/uL (4.33-5.43)
[2021-08-09 06:43] LABS: ALT/SGPT 14 U/L (12-78); AST/SGOT 11 U/L (15-37); Albumin 2.2 g/dL (3.4-5.0); Alkaline Phosphatase 72 U/L (45-117); BUN Blood Urea Nitrogen 19 mg/dL (7-18); Bicarbonate 26 mmol/L (21-32); Bilirubin Total 0.1 mg/dL (0.2-1.0); Glucose Level 112 mg/dL (74-106); Potassium 3.5 mmol/L (3.5-5.1); Protein, Total 7.2 g/dL (6.4-8.2); Sodium Level 141 mmol/L (136-145)
[2021-08-09] MEDS ORDERED: POTASSIUM 25 MEQ EFFERV TAB PO ONE (07:19)
[2021-08-09] MEDS: ENOXAPARIN 40 MG/0.4 ML SQ SCH (09:27)
--- NOTE | 2021-08-09 11:05 | P.DS ---
Admission Date: 08/06/21 Discharge Date: 08/09/21 Primary Care Provider: Unknown Disposition: DC HOME/HOME HEALTH CARE Discharge Condition: GOOD Reason for Admission: Urosepsis - Problems (1) Sepsis due to urinary tract infection Status: Acute (2) Obesity (BMI 35.0-39.9 without comorbidity) Status: Chronic (3) Paraplegia Status: Chronic (4) Spina bifida Status: Chronic Qualifiers: Spinal region: unspecified Presence of hydrocephalus: unspecified hydrocephalus presence Qualified Code(s): Q05.9 - Spina bifida, unspecified Brief History of Present Illness: Patient is a 51-year-old male with spina bifida with indwelling suprapubic urinary catheter presented to the ED with complaints of fever. Patient states that he went to [place] ER 2 days ago and was prescribed amoxicillin for UTI and discharged. Today in the ED patient's WBC was 10.7 but elevated bands. Sodium 134, calcium 8, pro-Sachin 0.18. urine 3+ blood, positive for nitrites, 3+ leukoesterase, 5-10 red blood cells and too numerous to count white blood cells. Covid negative, lactic acid 0.7. Patient is A&Ox3 and vital signs remain stable. blood cultures were drawn and patient was started on Levaquin and Rocephin. Patient was given 2 L of fluid in the ED. Patient admitted for further evaluation and treatment of urosepsis with IV antibiotics. Hospital Course: Patient admitted to the medical floor and treated with IV Rocephin and Levaquin. Urine culture grew multiple organism-E. coli and Klebsiella. Patient became afebrile, and asymptomatic. Blood cultures yielded no growth. His oral intake is good. Patient has been afebrile for 48 hours. Vitals are stable. He is deemed stable for discharge. Vital Signs/Physical Exam: Temp Pulse Resp BP Pulse Ox 97.9 F 97 H 20 113/69 99 08/09/21 08:00 08/09/21 08:00 08/09/21 08:00 08/09/21 08:00 08/09/21 08:00 General: Alert, In no apparent distress, Oriented x3 HEENT: PERRLA, Mucous membr. moist/pink Neck: JVD not distended Respiratory: Clear to auscultation bilaterally, Normal air movement Cardiovascular: No edema, Regular rate/rhythm, Normal S1 S2 Gastrointestinal: Normal bowel sounds, Soft and benign, Non-distended, Other (Suprapubic catheter) Musculoskeletal: No swelling Integumentary: No cyanosis Neurological: Other (Paraplegia.) Laboratory Data at Discharge: WBC 7.70 K/uL (4.3-10.9) 08/09/21 05:50 Hgb 10.4 g/dL (13.6-17.9) L 08/09/21 05:50 Hct 33.7 % (39.6-49.0) L 08/09/21 05:50 Plt Count 496 K/uL (152-406) H 08/09/21 05:50 PT 13.0 SECONDS (9.5-12.5) H 08/06/21 21:58 INR 1.13 08/06/21 21:58 APTT 33.9 SECONDS (24.3-36.9) 08/06/21 21:58 Sodium 141 mmol/L (136-145) 08/09/21 05:50 Potassium 3.5 mmol/L (3.5-5.1) 08/09/21 05:50 BUN 19 mg/dL (7-18) H 08/09/21 05:50 Creatinine 0.79 mg/dL (0.55-1.3) 08/09/21 05:50 Glucose 112 mg/dL (74-106) H 08/09/21 05:50 Magnesium 2.0 mg/dL (1.8-2.4) 08/07/21 02:33 Total Bilirubin 0.1 mg/dL (0.2-1.0) L 08/09/21 05:50 AST 11 U/L (15-37) L 08/09/21 05:50 ALT 14 U/L (12-78) 08/09/21 05:50 Alkaline Phosphatase 72 U/L (45-117) 08/09/21 05:50 Triglycerides 107 mg/dL (<150) 08/07/21 02:33 Cholesterol 92 mg/dL (<200) 08/07/21 02:33 HDL Cholesterol 19 mg/dL (40-60) L 08/07/21 02:33 Cholesterol/HDL Ratio 4.84 08/07/21 02:33 Lipase 62 U/L (73-393) L 08/06/21 21:58 Home Medications: Amox/Clavulanate [Augmentin 875-125 Tab] 875 mg PO BID #20 tab 08/09/21 Lactobacillus Acidophilus [Acidophilus Lactobacilli] 1 each PO TID #90 capsule 08/09/21 levoFLOXacin [Levaquin] 750 mg PO DAILY #10 tab 08/09/21 New Medications: Lactobacillus Acidophilus [Acidophilus Lactobacilli] 1 each PO TID #90 capsule Amox/Clavulanate [Augmentin 875-125 Tab] 875 mg PO BID #20 tab levoFLOXacin [Levaquin] 750 mg PO DAILY #10 tab Diet: Regular Activity: Ad speedy Followup: NONE,NONE [Primary Care Provider] - 1-2 Weeks Time spent managing pt's care (in minutes): 36
[2021-08-09 13:23] VITALS: BP 123/61; TEMP 97.8
== END 2021-08-09 15:14 | disposition home or self-care (01) | DRG 871 ==
LOC: ER 21:43 → ERHOLD 23:51 → 4TH 08-07 10:38 → 2ND 08-08 00:16
PROVIDERS: ADMIT Internal Medicine; ATTEND Internal Medicine
DX: A41.51 Sepsis due to Escherichia coli [E. coli] (principal); J18.9 Pneumonia, unspecified organism; N30.00 Acute cystitis without hematuria; Z68.41 Body mass index [BMI] 40.0-44.9, adult; G82.20 Paraplegia, unspecified; R65.20 Severe sepsis without septic shock; Q05.9 Spina bifida, unspecified; E66.9 Obesity, unspecified; B96.1 Klebsiella pneumoniae [K. pneumoniae] as the cause of diseases classified elsewhere; Z88.1 Allergy status to other antibiotic agents; Z79.899 Other long term (current) drug therapy; Z89.422 Acquired absence of other left toe(s); Z60.2 Problems related to living alone; Z20.822 Contact with and (suspected) exposure to COVID-19
CPT/HCPCS: 36415; 71045; 80048; 80053; 80061; 80076; 81003; 81015; 83605; 83690; 83735; 84145; 84439; 84443; 84484; 85025; 85610; 85730; 87040; 87077; 87086; 87088; 87186; 87205; 93005; 99284; J1650; J7030; U0003

== ENCOUNTER 2024-01-31 12:52 | Emergency (ER) | payer BC, OTHER ==
--- NOTE | 2024-01-31 13:46 | RAD REPORT ---
EXAM DESCRIPTION: CTAbdomen Pelvis Wo Contrast - 01/31/2024 1:30 pm CLINICAL HISTORY: possible left nephrostomy displacement COMPARISON: Abdomen Pelvis W Contrast dated 12/25/2023; Abdomen Pelvis W Contrast dated 08/17/2023; Abdomen Pelvis W Contrast dated 01/04/2023 TECHNIQUE: CT of the abdomen and pelvis was performed. All CT scans are performed using dose optimization technique as appropriate and may include automated exposure control or mA/KV adjustment according to patient size. FINDINGS: Lower chest: No acute abnormality. Liver: No acute abnormality or suspicious lesions. Biliary: No biliary ductal dilatation. Cholelithiasis . Stomach: No significant focal abnormality. Duodenum: No significant focal abnormality. Pancreas: No significant abnormality. Spleen: Mild splenomegaly. Adrenal: No suspicious lesions. Kidney/ureter: Bilateral nephroureteral stents. The tips are in the bladder. Renal calculi present bi laterally. Too small to characterize and/or benign appearing renal lesions are noted. The left nephro ureteral stent is slightly retracted out of the renal pelvis with portion of the coil retracts into t he parenchyma. Similar mild bilateral hydronephrosis. Retroperitoneum: No retroperitoneal adenopathy. Vascular: No aneurysm. Bowel: Diffusely dilated colon down to the level of the anus. Large rectal stool burden. The wall of the distal sigmoid and rectum is thickened. The wall thickening is slightly increased from prior.. Peritoneum: No ascites or free air. Small fat containing umbilical hernia. Bladder: Suprapubic catheter. Distal ends of the nephroureteral stents in the bladder. Nonspecific bl adder wall thickening. Reproductive: No masses. Bones: Spina bifida . Osteopenia. Other: n/a IMPRESSION: The left nephroureteral stent is retracted. Part of the coil at the left kidney is retra cted out of the renal pelvis and may be either within a calyx or partially retracted into the parench yma. The distal tip remains in the bladder. Similar mild bilateral hydronephrosis . Diffusely distended colon and rectum with large volume of stool within the rectum. The colonic and re ctal distention is chronic. No evidence of an overt bowel obstruction.
--- NOTE | 2024-01-31 15:16 | EDPHYS ---
Physician Documentation [facility] Name: Elizabeth Spivey Age: 53 yrs Sex: Male : 1970 Arrival Date: 01/31/2024 Time: 12:52 Bed 7 Private MD: ED Physician Cullen Murrieta HPI: 01/30 14:31 This 53 yrs old Male presents to ER via EMS with complaints of Nephrostomy Tube Problem.jr8 14:31 Onset: The symptoms/episode began/occurred acutely, yesterday. Associated signs and jr8 symptoms: Pertinent positives: The patient does not have any pertinent positive signs or symptoms associated with pediatric illness. The patient has not experienced similar symptoms in the past. The patient has not recently seen a physician. Patient has bilateral nephrostomy tubes secondary to renal calculi. Stated that during sheet including change yesterday tube got caught in the blankets and pulled slightly. Since then has had leaking around the tube and on his dressings. Concerned that there may be displacement of the left nephrostomy tube. Denies any other symptoms at this time.. Historical: - Allergies: 12:57 Macrobid; hb - Home Meds: 12:57 Myrbetriq 50 mg Oral tablet 1 tab daily [Active]; hb - PMHx: 12:57 Anemia; Kidney stone; lymphedema; Obesity; paraplegic; spina bifida; hb - Immunization history:: Adult Immunizations up to date. - Infectious Disease History:: Denies. - Social history:: Smoking status: Patient denies any tobacco usage or history of. ROS: 14:31 Eyes: Negative for injury, pain, redness, and discharge, ENT: Negative for injury, jr8 pain, and discharge, Neck: Negative for injury, pain, and swelling, Cardiovascular: Negative for chest pain, palpitations, and edema, Respiratory: Negative for shortness of breath, cough, wheezing, and pleuritic chest pain, Abdomen/GI: Negative for abdominal pain, nausea, vomiting, diarrhea, and constipation, Back: Negative for injury and pain, MS/Extremity: Negative for injury and deformity, Skin: Negative for injury, rash, and discoloration, Neuro: Negative for headache, weakness, numbness, tingling, and seizure, Exam: 14:31 Constitutional: This is a well developed, well nourished patient who is awake, alert, jr8 and in no acute distress. Eyes: Pupils equal round and reactive to light, extra-ocular motions intact. Lids and lashes normal. Conjunctiva and sclera are non-icteric and not injected. Cornea within normal limits. Periorbital areas with no swelling, redness, or edema. Cardiovascular: Regular rate and rhythm with a normal S1 and S2. No gallops, murmurs, or rubs. Normal PMI, no JVD. No pulse deficits. Respiratory: Lungs have equal breath sounds bilaterally, clear to auscultation and percussion. No rales, rhonchi or wheezes noted. No increased work of breathing, no retractions or nasal flaring. Abdomen/GI: Soft, non-tender, with normal bowel sounds. No distension or tympany. No guarding or rebound. No evidence of tenderness throughout. Back: No spinal tenderness. No costovertebral tenderness. Full range of motion. Bilateral nephrostomy tubes present on either side of his back. Both with sutures in place. No evident significant displacement of left nephrostomy noted. Skin: Warm, dry with normal turgor. Normal color with no rashes, no lesions, and no evidence of cellulitis. MS/ Extremity: Pulses equal, no cyanosis. Neurovascular intact. Full, normal range of motion. Neuro: Awake and alert, GCS 15, oriented to person, place, time, and situation. Motor strength 5/5 upper extremities. Sensory grossly intact. Vital Signs: 12:56 BP 122 / 83; Pulse 87; Resp 16; Temp 98.4(O); Pulse Ox 100% on R/A; Weight 104.33 kg; hb Height 5 ft. 5 in. ; Pain 0/10; 13:55 BP 113 / 71; Pulse 82; Resp 15; Pulse Ox 100% on R/A; hb 14:06 BP 113 / 71; Pulse 84; Resp 18; Pulse Ox 99% on R/A; ar6 14:54 BP 140 / 76; Pulse 88; Resp 18; Pulse Ox 100% on R/A; ar6 12:56 Body Mass Index 38.27 (104.33 kg, 165.1 cm) hb 12:56 Pain Scale: Adult hb MDM: 12:55 Patient medically screened. jr8 14:31 Data reviewed: vital signs, nurses notes, radiologic studies, CT scan. jr8 15:13 Consideration of Admission/Observation Escalation of care including jr8 admission/observation considered. Management of patient was discussed with the following: Discussed case with urology team at [facility] that handles patients care. After discussion with them they feel that patient can go home safely as the distal part is doing good position. Will call him first thing on Friday to schedule for interventional radiology to either replace or adjust. Otherwise no need for emergent transfer for this procedure. I have discussed this with the patient as well which she is okay with.. Counseling: I had a detailed discussion with the patient and/or guardian regarding the historical points, exam findings, and any diagnostic results supporting the discharge/admit diagnosis, lab results, radiology results, the need for outpatient follow up, a urologist. Counseling: I had a detailed discussion with the patient and/or guardian regarding to return to the emergency department if symptoms worsen or persist or if there are any questions or concerns that arise at home. 01/30 13:09 Order name: CT Abd/Pelvis - Without Contrast; Complete Time: 13:58 jr8 Administered Medications: No medications were administered Disposition Summary: 01/31/24 15:15 Discharge Ordered Notes: Location: Home jr8 Problem: new jr8 Symptoms: have improved jr8 Condition: Stable jr8 Diagnosis - Displacement of nephrostomy catheter, initial encounter jr8 Followup: jr8 - With: Private Physician - When: 1 - 2 days - Reason: Recheck today's complaints, Continuance of care, Re-evaluation by your physician Discharge Instructions: - Discharge Summary Sheet jr8 - Percutaneous Nephrostomy Home Guide jr8 Forms: - Medication Reconciliation Form jr8 - Antibiotic Education jr8 - Prescription Opioid Use jr8 - Patient Portal Instructions jr8 - Leadership Thank You Letter jr8 - SBAR form eb Signatures: Dispatcher [employer] Richard Diaz PA PA jr8 Leanne Honeycutt RN RN
--- NOTE | 2024-01-31 15:16 | ER ---
Nurse's Notes [facility] Name: Elizabeth Spivey Age: 53 yrs Sex: Male : 1970 Arrival Date: 01/31/2024 Time: 12:52 Bed 7 Private MD: Diagnosis: Displacement of nephrostomy catheter, initial encounter Presentation: 01/30 12:56 Chief complaint: EMS states: Left nephrostomy tube dislodged during linen change hb yesterday. Coronavirus screen: At this time, the client does not indicate any symptoms associated with coronavirus-19. Ebola Screen: No symptoms or risks identified at this time. Initial Sepsis Screen: Does the patient meet any 2 criteria? No. Patient's initial sepsis screen is negative. Does the patient have a suspected source of infection? No. Patient's initial sepsis screen is negative. Risk Assessment: Do you want to hurt yourself or someone else? Patient reports no desire to harm self or others. Onset of symptoms was January 30, 2024. 12:56 Method Of Arrival: EMS: [facility] 12:56 Acuity: MARTÍN 3 hb Triage Assessment: 12:57 General: Appears in no apparent distress. Behavior is calm, cooperative. Pain: Denies hb pain. Neuro: Level of Consciousness is awake, alert, obeys commands, Oriented to person, place, time, situation. Cardiovascular: Patient's skin is warm and dry. Respiratory: Respiratory effort is even, unlabored, Respiratory pattern is regular, symmetrical. : right nephrostomy tube in place, left absent. Historical: - Allergies: 12:57 Macrobid; hb - Home Meds: 12:57 Myrbetriq 50 mg Oral tablet 1 tab daily [Active]; hb - PMHx: 12:57 Anemia; Kidney stone; lymphedema; Obesity; paraplegic; spina bifida; hb - Immunization history:: Adult Immunizations up to date. - Infectious Disease History:: Denies. - Social history:: Smoking status: Patient denies any tobacco usage or history of. Screenin:58 [facility] ED Fall Risk Assessment (Adult) History of falling in the last 3 months, hb including since admission No falls in past 3 months (0 pts) Confusion or Disorientation No (0 pts) Intoxicated or Sedated No (0 pts) Impaired Gait Yes (1 pt) Mobility Assist Device Used Yes (1 pt) Altered Elimination Yes (1 pt) Score/Fall Risk Level 3 or more points = High Risk Oriented to surroundings, Maintained a safe environment, Educated pt \T\ family on fall prevention, incl call for assistance when getting out of bed, Assessed \T\ reinforced patient's understanding of fall precautions, Hourly rounding (assess needs \T\ fall precautionary measures) done. Abuse screen: Denies threats or abuse. Denies injuries from another. Nutritional screening: No deficits noted. Tuberculosis screening: No symptoms or risk factors identified. Assessment: 12:58 General: See triage assessment. hb 13:55 Reassessment: Patient appears in no apparent distress at this time. Patient and/or hb family updated on plan of care and expected duration. Pain level reassessed. Patient is alert, oriented x 3, equal unlabored respirations, skin warm/dry/pink. 14:06 Reassessment: No changes from previously documented assessment. Patient and/or family ar6 updated on plan of care and expected duration. Pain level reassessed. Patient is alert, oriented x 3, equal unlabored respirations, skin warm/dry/pink. 15:33 Reassessment: pending d/c for EMS to transport home. ar6 Vital Signs: 12:56 BP 122 / 83; Pulse 87; Resp 16; Temp 98.4(O); Pulse Ox 100% on R/A; Weight 104.33 kg; hb Height 5 ft. 5 in. ; Pain 0/10; 13:55 BP 113 / 71; Pulse 82; Resp 15; Pulse Ox 100% on R/A; hb 14:06 BP 113 / 71; Pulse 84; Resp 18; Pulse Ox 99% on R/A; ar6 14:54 BP 140 / 76; Pulse 88; Resp 18; Pulse Ox 100% on R/A; ar6 12:56 Body Mass Index 38.27 (104.33 kg, 165.1 cm) hb 12:56 Pain Scale: Adult hb ED Course: 12:55 Patient arrived in ED. hb 12:55 Richard Ruano PA is PHCP. jr8 12:55 Cullen Murrieta MD is Attending Physician. jr8 12:57 Triage completed. hb 12:57 Arm band placed on. hb 12:58 Patient has correct armband on for positive identification. Bed in low position. Call hb light in reach. Side rails up X2. Provided Education on: tests, result times, use of call light. 13:32 CT Abd/Pelvis - Without Contrast In Process Unspecified. EDMS 14:05 Kate Contreras, RN is Primary Nurse. ar6 14:18 initiated a transfer with Vicenta from the [facility] at the request eb of the patient. 14:37 Vicenta will have to call us back with the urologist paper production engineer. eb 15:03 connected the urologist paper production engineer for [facility] with Richard Crowder for patient transfer eb consultation. 15:34 No provider procedures requiring assistance completed. Patient did not have IV access ar6 during this emergency room visit. Administered Medications: No medications were administered Medication: 12:58 VIS not applicable for this client. hb Outcome: 15:15 Discharge ordered by . polina 15:34 Condition: good ar6 15:47 Discharged to home via ambulance, ld1 15:47 Discharge instructions given to patient, Instructed on discharge instructions, follow up and referral plans. Demonstrated understanding of instructions, follow-up care, 15:47 Patient left the ED. ld1 Signatures: Dispatcher [employer] EDMS Richard Ruano PA PA jr8 Leanne Honeycutt RN RN Dali Mcclellan eb Cata Quinn RN RN ld1 Kate Contreras, RN RN ar6 Corrections: (The following items were deleted from the chart) 15:04 14:18 initiated a transfer with Vicenta from the [facility] eb eb
[2024-01-31 15:52] VITALS: TEMP 98.4
[2024-01-31 15:56] VITALS: BP 140/76; O2SAT 100
== END 2024-01-31 15:47 | disposition home or self-care (01) ==
LOC: ER 12:52
DX: T83.022A Displacement of nephrostomy catheter, initial encounter (principal); G82.20 Paraplegia, unspecified
CPT/HCPCS: 74176; 99283